=== PATIENT | female | born 1985 | race Caucasian/White ===

== ENCOUNTER 2017-03-18 21:29 | Inpatient (IN) | payer BC ==
[~2017-03-18] VITALS: Ht 162.6 cm; Wt 66.4 kg
[2017-03-18] VITALS (9 sets, daily range): BP systolic 113–152; BP diastolic 66–82; PULSE 84–96; TEMP 97.6
[~2017-03-18 21:29] MED LIST: PERCOCET 325 MG1 TA2 PO; PRENATAL1 TA1 PO
[2017-03-18] MEDS ORDERED: MOTRIN 800800 MG/TAB PO (22:11)
[2017-03-18] MEDS ORDERED: PERCOCET 325 MG1 TA2 PO (22:11)
[2017-03-18 22:33] LABS: BASO % 0.2 % (0.0-2.0); EOS # 0.1 (0.0-0.7); EOS % 0.4 % (0-4.0); GRAN # 14.6 (1.4-6.5); GRAN % 81.7 % (42.2-75.2); HEMATOCRIT 37.9 % (37.0-47.0); LYMPH # 1.9 (1.2-3.4); LYMPH % 10.4 % (20.0-51.0); MEAN CELL VOLUME 87 fl (80.0-100.0); MEAN CORPUSCULAR HEMOGLOBIN 30 pg (27.0-31.0); MEAN CORPUSCULAR HGB CONC 34 g/dl (33.0-37.0); MEAN PLATELET VOLUME 12.1 fl (7.4-10.4); MONO # 1.2 (0.1-0.6); MONO % 6.7 % (1.7-9.3); PLATELET COUNT 203 K/mm3 (130-400); RED BLOOD COUNT 4.35 M/mm3 (4.10-5.30); REDCELL DISTRIBUTION WIDTH-CV 12.6 % (11.5-14.5); WHITE BLOOD COUNT 17.8 K/mm3 (4.8-10.8)
[2017-03-19] VITALS (13 sets, daily range): BP systolic 113–132; BP diastolic 56–76; PULSE 65–97; TEMP 97.6–98.5
[2017-03-20 08:00] VITALS: BP 109/72; PULSE 86; TEMP 98.5
== END 2017-03-20 11:25 | disposition home or self-care (01) | DRG 775 ==
LOC: LDRO 21:29 → OB 21:45 → LDR 21:45 → OB 03-19 02:59
PROVIDERS: Obstetrics & Gynecology
PROC: 10E0XZZ Delivery of Products of Conception, External Approach (ICD-10-PCS; principal; 2017-03-18)
PROC: 0HQ9XZZ Repair Perineum Skin, External Approach (ICD-10-PCS; 2017-03-18)
DX: O99.284 Endocrine, nutritional and metabolic diseases complicating childbirth (principal); O36.0130 Maternal care for anti-D [Rh] antibodies, third trimester, not applicable or unspecified; E03.9 Hypothyroidism, unspecified; O70.0 First degree perineal laceration during delivery; Z3A.38 38 weeks gestation of pregnancy; Z37.0 Single live birth
CPT/HCPCS: J2590; J7120

== ENCOUNTER → 2017-05-13 | Outpatient (CLI) | payer BC ==
[~2017-05-13] MED LIST changes: +MOTRIN 800800 MG/TAB PO
[2017-05-13 14:51] LABS: HEMATOCRIT 37.9 % (37.0-47.0); HEMOGLOBIN 12.5 g/dl (12.5-16.0); MEAN CELL VOLUME 88 fl (80.0-100.0); MEAN CORPUSCULAR HEMOGLOBIN 29 pg (27.0-31.0); MEAN CORPUSCULAR HGB CONC 33 g/dl (33.0-37.0); MEAN PLATELET VOLUME 10.6 fl (7.4-10.4); PLATELET COUNT 165 K/mm3 (130-400); RED BLOOD COUNT 4.31 M/mm3 (4.10-5.30); REDCELL DISTRIBUTION WIDTH-CV 12.4 % (11.5-14.5); WHITE BLOOD COUNT 6.7 K/mm3 (4.8-10.8)
[2017-05-13 14:52] LABS: ADD PATHOLOGY DIFF REVIEW NO
[2017-05-13 14:57] LABS: ADJUSTED CALCIUM 8.6 mg/dL (8.4-10.2); ALBUMIN 4.5 gm/dL (3.5-5.0); BILIRUBIN,TOTAL 0.9 mg/dL (0.0-1.0); CREATININE, serum 0.78 mg/dL (0.52-1.25); POTASSIUM 3.7 mmol/L (3.4-5.0); TOTAL PROTEIN 7.7 gm/dL (6.4-8.2)
[2017-05-13 16:28] LABS: BAND 4 % (0-10); NEUTROPHILS 77 % (42.0-75.2); TOTAL CELLS COUNTED 100
[2017-05-13 16:29] LABS: PLATELET ESTIMATE NORMAL (NORMAL)
== END ==
LOC: COL.RAD 14:16
PROVIDERS: Internal Medicine
DX: R10.11 Right upper quadrant pain (principal)

== ENCOUNTER → 2020-12-18 | Outpatient (CLI) | payer BC ==
[~2020-12-18] MED LIST changes: +SYNTHROID0.075 MG/T; +VITAMIN D3400 I1 PO
== END ==
LOC: DIA.ED
DX: O24.419 Gestational diabetes mellitus in pregnancy, unspecified control (principal)
CPT/HCPCS: G0108

== ENCOUNTER 2021-02-15 06:21 | Inpatient (IN) | payer BC ==
[~2021-02-15] VITALS: Ht 162.6 cm; Wt 65.0 kg
[2021-02-15] VITALS (28 sets, daily range): BP systolic 92–152; BP diastolic 54–87; PULSE 62–99; TEMP 97.5–98.4
[~2021-02-15 06:21] MED LIST changes: -SYNTHROID0.075 MG/T; -VITAMIN D3400 I1 PO
--- NOTE | 2021-02-15 06:30 | NUR ---
Pt arrived on unit ambulatory and escorted by for scheduled induction. Pt denies any leaking of fluid or vaginal bleeding, reports occasional contractions and reports normal movement. EFM and toco monitors started. Vital signs WNL. Plan of care for induction and orders from Dr. Liu reviewed with both pt and at the bedside. Both verbalized an understanding, agreed with the plan and state no questions at this time.
[2021-02-15] MEDS ORDERED: SYNTHROID0.075 MG/T (07:27)
[2021-02-15] MEDS ORDERED: VITAMIN D3400 I1 PO (07:28)
[2021-02-15 07:58] LABS: BASO # 0.1 (0.0-0.2); BASO % 0.6 % (0.0-2.0); EOS # 0.1 (0.0-0.7); EOS % 1.3 % (0-4.0); GRAN % 73.7 % (42.2-75.2); LYMPH # 1.8 (1.2-3.4); LYMPH % 16.8 % (20.0-51.0); MEAN CELL VOLUME 85 fl (80.0-100.0); MEAN CORPUSCULAR HEMOGLOBIN 28 pg (27.0-31.0); MEAN CORPUSCULAR HGB CONC 33 g/dl (33.0-37.0); MEAN PLATELET VOLUME 11.6 fl (7.4-10.4); MONO # 0.7 (0.1-0.6); MONO % 6.8 % (1.7-9.3); PLATELET COUNT 194 K/mm3 (130-400); RED BLOOD COUNT 4.31 M/mm3 (4.10-5.30); REDCELL DISTRIBUTION WIDTH-CV 12.1 % (11.5-14.5)
[2021-02-15 08:00] LABS: HEMATOCRIT 36.6 % (37.0-47.0)
--- NOTE | 2021-02-15 08:15 | NUR ---
Dr. Liu at the bedside. FHR tracing reviewed. AROM for clear fluid per Dr. Liu.
--- NOTE | 2021-02-15 08:56 | NUR ---
855- BIJAL Lazcano at the bedside for epidural placement. Pt sitting up on the edge of the bed. SPO2 monitor started. 904- Dose done per BIJAL Lazcano. See anesthesia records for details. 908- Assisted pt back to supine with left wedge position. EFM and toco monitors adjusted.
--- NOTE | 2021-02-15 11:50 | NUR ---
1150- Dr. Liu at the bedside. 1152- SVE /+[address] Liu. 1153- [place] removed without complications. 1155- Pushing started. 1157- of viable male . [place] placed on mom's abdomen. Cords clamped and cut. Care of the given to nursery RN at the bedside. 1200- of placenta. Pitocin started at 333ml/hr per order and protocol. Fundus firm and lochia WNL.
[2021-02-15] MEDS ORDERED: MOTRIN 800800 MG/TAB PO (19:57)
[2021-02-16 01:00] VITALS: BP 106/63; PULSE 72; TEMP 97.8
[2021-02-16 04:00] VITALS: BP 100/50; PULSE 90; TEMP 98
[2021-02-16 08:34] VITALS: BP 105/74; PULSE 73; TEMP 97.3
--- NOTE | 2021-02-16 08:52 | NUR ---
Initial visit; Patient thanked [employer] Feeder for offering congratulations and God's blessings for the of her son. Destaticizer Feeder thanked Mom for choosing [facility].
[2021-02-16 16:56] VITALS: BP 105/58; PULSE 64; TEMP 98.2
[2021-02-16 21:30] VITALS: BP 115/62; PULSE 61; TEMP 98.2
[2021-02-17 08:00] VITALS: BP 113/74; PULSE 66; TEMP 98.1
--- NOTE | 2021-02-17 13:00 | NUR ---
Discharge instructions reviewed with. Pt verbalized an understanding, agreed with the plan and states no questions or concerns at this time. Pt waiting for for transport home.
== END 2021-02-17 14:10 | disposition home or self-care (01) | DRG 768 ==
LOC: LDR 06:21 → OB 14:56
PROVIDERS: ADMIT Obstetrics & Gynecology
PROC: 10E0XZZ Delivery of Products of Conception, External Approach (ICD-10-PCS; principal; 2021-02-15)
PROC: 0UQJXZZ Repair Clitoris, External Approach (ICD-10-PCS; 2021-02-15)
PROC: 10907ZC Drainage of Amniotic Fluid, Therapeutic from Products of Conception, Via Natural or Artificial Opening (ICD-10-PCS; 2021-02-15)
PROC: 0HQ9XZZ Repair Perineum Skin, External Approach (ICD-10-PCS; 2021-02-15)
DX: O24.420 Gestational diabetes mellitus in childbirth, diet controlled (principal); Z37.0 Single live birth; O99.824 Streptococcus B carrier state complicating childbirth; O99.284 Endocrine, nutritional and metabolic diseases complicating childbirth; E03.9 Hypothyroidism, unspecified; O99.52 Diseases of the respiratory system complicating childbirth; J45.909 Unspecified asthma, uncomplicated; O70.0 First degree perineal laceration during delivery; Z3A.39 39 weeks gestation of pregnancy; O26.893 Other specified pregnancy related conditions, third trimester; Z67.91 Unspecified blood type, Rh negative; Z86.16 Personal history of COVID-19
CPT/HCPCS: J2540; J2590; J2791; J7120